=== PATIENT | male | born 1995 | race Caucasian/White ===

== ENCOUNTER 2022-02-25 02:11 | Emergency (ER) | payer OTHER ==
[~2022-02-25] VITALS: Ht 182.9 cm; Wt 81.7 kg
[~2022-02-25 02:11] MED LIST: ALBU90OI; CEPH500 PO
== END 2022-02-25 02:59 | disposition left against medical advice (07) ==
LOC: ER 02:11
DX: L50.9 Urticaria, unspecified (principal); F17.200 Nicotine dependence, unspecified, uncomplicated; Z53.29 Procedure and treatment not carried out because of patient's decision for other reasons
CPT/HCPCS: 99282

== ENCOUNTER → 2023-03-21 | Outpatient (CLI) | payer OTHER ==
[~2023-03-21] MED LIST changes: +ACETAMINOPHEN500 MG PO; +ARIPIPRAZOLE2 M1 PO; +BUPROPION XL150 M1 PO; +Hydroxyzine HCl50 MG; +Trazodone HCl300 MG PO
== END | disposition home or self-care (01) ==
LOC: LAB SHORT 17:04 → LAB 17:04
DX: J03.90 Acute tonsillitis, unspecified (principal)
CPT/HCPCS: 87081